=== PATIENT | female | born 2005 | race Two or more races ===

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

== ENCOUNTER 2025-04-10 10:50 | Emergency (ER) | payer OTHER ==
[~2025-04-10] VITALS: Ht 160 cm; Wt 54.4 kg
[2025-04-10] MEDS ORDERED: SINGULAIR10 MG PO (10:58)
== END 2025-04-10 11:44 | disposition home or self-care (01) ==
LOC: ER 10:56 → EMR PED 10:56
DX: H10.12 Acute atopic conjunctivitis, left eye (principal)